=== PATIENT | female | born 1995 | race Caucasian/White ===

== ENCOUNTER 2019-07-26 11:01 | Emergency (ER) | payer OTHER ==
[~2019-07-26] VITALS: Ht 165.1 cm; Wt 118.2 kg
[2019-07-26] MEDS ORDERED: ZOVIRAX 200MG200 MG PO (11:16)
[2019-07-26 11:17] VITALS: BP 129/69; TEMP 98.2
[2019-07-26] MEDS ORDERED: MEDROL 4MG DOSPA4 MG PO (11:39)
[2019-07-26] MEDS ORDERED: NORCO 325 MG-51 TAB PO (11:39)
[2019-07-26 12:08] VITALS: PULSE 66
== END 2019-07-26 12:10 | disposition home or self-care (01) ==
LOC: COL.ER 11:01
DX: M75.21 Bicipital tendinitis, right shoulder (principal); Y92.59 Other trade areas as the place of occurrence of the external cause